=== PATIENT | female | born 1960 | race Caucasian/White ===

== ENCOUNTER 2025-02-13 08:36 | Outpatient (OUT) | payer MEDICARE, SELFPAY ==
[2025-02-13 09:00] LABS: Hemoglobin 14.0 g/dL (12.0-16.0)
[2025-02-13] MEDS: ALBUTEROL SULFATE 2.5 MG/3 ML VIAL NEB IH (09:56)
--- NOTE | 2025-02-13 10:43 | XR_ITS ---
The [address] [address] Patient Name: TORIBIO FIELDS MRN: [id number] date: 1960 Sex: F Assigned Patient Location: CARD Current Patient Location: CARD Accession/Order Number: [id number] Exam Date: 02/13/2025 10:49 Report Date: 02/13/2025 11:20 At the request of: LISA WHELAN NP Procedure: XR chest 2V PA AND LATERAL CHEST: CLINICAL HISTORY: Shortness of breath and copd. History of tobacco use COMPARISON: None There is mild hyperinflation and coarsening of interstitial markings that may relate to history of tobacco use. There is no focal parenchymal consolidation, effusion or pneumothorax. The cardiac, hilar and mediastinal silhouettes are within normal limits. There is no suspected vascular congestion. The visualized bony structures are osteopenic. There is dextroscoliotic curvature and endplate spurring at the spine. There is a potential enchondroma or bone infarct at the proximal left humerus. XR/XR chest 2V IMPRESSION: OBSTRUCTIVE LUNG DISEASE WITH CHRONIC APPEARING CHANGES. NO DEFINITE ACUTE FINDINGS. Impression dictated by: Laurence Noyola M.D. 02/13/2025 11:20 AM Dictation Location: [place] [address] Electronically authenticated by: [id number] Y Date: 02/13/2025 11:20
== END 2025-02-13 08:37 | disposition home or self-care (01) ==
PROVIDERS: PCP Nurse Practitioner Family; Visit Provider Nurse Practitioner Family
DX: J44.9 Chronic obstructive pulmonary disease, unspecified (principal)
CPT/HCPCS: 36415; 71046; 85018; 94060; 94726; 94729; 99407